=== PATIENT | female | born 1975 | race Caucasian/White ===

== ENCOUNTER 2016-08-28 04:02 | Emergency (ER) | payer MEDICAID ==
[2016-08-28 05:05] VITALS: BP 129/86
== END 2016-08-28 05:05 | disposition home or self-care (01) ==
LOC: ED 04:02
DX: S46.811A Strain of other muscles, fascia and tendons at shoulder and upper arm level, right arm, initial encounter (principal); Z88.5 Allergy status to narcotic agent; Z88.6 Allergy status to analgesic agent; X58.XXXA Exposure to other specified factors, initial encounter; Y93.89 Activity, other specified; Y92.003 Bedroom of unspecified non-institutional (private) residence as the place of occurrence of the external cause; Y99.8 Other external cause status
CPT/HCPCS: J1885

== ENCOUNTER 2017-10-07 18:35 | Emergency (ER) | payer MEDICAID ==
[~2017-10-07] VITALS: Ht 160 cm; Wt 67.3 kg
[2017-10-07 18:46] VITALS: Ht 160 cm; Wt 67.3 kg
[2017-10-07 19:46] VITALS: BP 134/90
== END 2017-10-07 20:14 | disposition home or self-care (01) ==
LOC: ED 18:35
DX: L29.9 Pruritus, unspecified (principal); Z88.6 Allergy status to analgesic agent; Z88.8 Allergy status to other drugs, medicaments and biological substances
CPT/HCPCS: J7512; Q0163